=== PATIENT | female | born 1975 | race Asian ===

== ENCOUNTER 2019-07-13 17:03 | Outpatient (CLI) | payer OTHER ==
--- NOTE | 2019-07-14 15:15 | Ultrasound Report ---
Reason: TEST POSITIVE Procedure Date: 07/13/2019 Accession Number: [id number] / [id number] Procedure: US - OB First Trimester CPT Code: FULL RESULT: EXAM: FIRST TRIMESTER OBSTETRIC ULTRASOUND (Less than 11 weeks) EXAM DATE: 07/13/2019 05:55 PM. CLINICAL HISTORY: TEST POSITIVE. LMP: 05/21/2020. COMPARISONS: None. TECHNIQUE: Transabdominal and transvaginal ultrasound examination with static image documentation. CLINICAL DATES: EGA 7 weeks 4 days with JEREMÍAS 02/25/2020 based on LMP. ASSESSMENT: Gestational Sac: Single intrauterine. Mean gestational sac diameter: 38 mm = 9 weeks 1 day. Embryo: CRL (crown-rump length) 11 mm = 7 weeks 1 day. Cardiac activity: 150 beats per minute. Yolk sac: 4 mm. Amniotic fluid: Not accurately assessed at this gestational age. Early placenta: Not visible at this gestational age. Other: No perigestational fluid collection demonstrated. MATERNAL STRUCTURES: Uterus: Anteverted/ . Unremarkable. Cervix: Closed. Right Ovary/Adnexa: The ovary measures 3 x 1.8 x 2 cm, volume 5.6 cc. Unremarkable. Left Ovary/Adnexa: The ovary measures 4 x 2.5 x 2.8 cm, volume 14.9 cc. 2.3 x 1.9 x 1.7 cm corpus luteal cyst Free Fluid: None. Other: None. IMPRESSION: 1. Single viable intrauterine at EGA 7 weeks 1 day with JEREMÍAS 02/28/2020 based on crown-rump length, which is concordant with clinical dates. Of note the gestational sac is measuring 2 weeks ahead of the crown-rump length. RADIA
== END 2019-07-13 17:04 | disposition home or self-care (01) ==
LOC: DI 17:03
PROVIDERS: ATTEND Obstetrics & Gynecology
DX: Z32.01 Encounter for pregnancy test, result positive (principal)
CPT/HCPCS: 76801; 76817

== ENCOUNTER 2019-07-23 22:18 | Emergency (ER) | payer OTHER ==
[2019-07-23] MEDS ORDERED: ONDANSETRON 4 MG/2 ML VIAL IVP STA (23:12)
[2019-07-23] MEDS ORDERED: SODIUM CHLORIDE 0.9% 1,000 ML IV STA (23:12)
[2019-07-23 23:43] LABS: BASOPHILS % (AUTO) 0.2 %; EOSINOPHILS % (AUTO) 0.5 %; HGB - HEMOGLOBIN 12.8 g/dL (12.0-16.0); LYMPHOCYTES # (AUTO) 0.8 10^3/uL (1.5-3.5); LYMPHOCYTES % (AUTO) 12.2 %; MEAN CORPUSCULAR HGB CONC 34.1 g/dL (32.0-36.0); MEAN CORPUSCULAR VOLUME 87.8 fL (81.0-99.0); MEAN PLATELET VOLUME 11.6 fL (7.9-10.8); MONOCYTES # (AUTO) 0.3 10^3/uL (0.0-1.0); MONOCYTES % (AUTO) 4.2 %; NEUTROPHILS # (AUTO) 5.3 10^3/uL (1.5-6.6); NEUTROPHILS % (AUTO) 82.6 %; PLT - PLATELET COUNT 153 10^3/uL (130-450); RED BLOOD COUNT 4.27 10^6/uL (4.20-5.40); RED CELL DISTRIBUTION WIDTH 11.5 % (12.0-15.0); WHITE BLOOD COUNT 6.5 x10^3/uL (4.8-10.8)
[2019-07-23 23:57] LABS: ALBUMIN 3.7 g/dL (3.2-5.5); ALBUMIN/GLOBULIN RATIO 1.2 (1.0-2.2); BILIRUBIN,TOTAL 0.5 mg/dL (0.2-1.0); CALCIUM 9.1 mg/dL (8.5-10.3); CREATININE 0.5 mg/dL (0.4-1.0); TOTAL PROTEIN 6.9 g/dL (6.7-8.2)
[2019-07-24 00:36] LABS: BILIRUBIN,URINE NEGATIVE (NEGATIVE); GLUCOSE, URINE (UA) NEGATIVE (NEGATIVE); KETONES,URINE (UA) NEGATIVE (NEGATIVE); LEUKOCYTE ESTERASE, URINE NEGATIVE (NEGATIVE); NITRITE,URINE NEGATIVE (NEGATIVE); OCCULT BLOOD,URINE NEGATIVE (NEGATIVE); PROTEIN,URINE NEGATIVE (NEGATIVE); UROBILINOGEN,URINE 0.2 (NORMAL) E.U./dL (NORMAL)
[2019-07-24 01:00] LABS: CLARITY,URINE CLEAR (CLEAR)
[2019-07-24 01:26] VITALS: BP 102/69
--- NOTE | 2019-07-24 03:39 | ED Physician Documentation ---
PD HPI FEMALE - Stated complaint Stated Complaint: FEMALE /9 WKS - Chief complaint Chief Complaint: Abd Pain - History obtained from History obtained from: Patient - History of Present Illness Timing - onset: How many hours ago (2-3 hours DIRECTOR MEDIA) Timing - duration: Hours Timing - details: Abrupt onset, Still present (nearly resolved by the time of this evaluation), Waxing and waning Contributing factors: (approximately 9 weeks) OB-FISH AND WILDLIFE TECHNICIAN History: G (5), P (4) Similar symptoms before: Has not had sx before Recently seen: Not recently seen - Additional information Additional information: patient is approximately 9 weeks . 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 This was associated with nausea and vomiting, worse with standing. Symptoms have improved significantly prior to this evaluation. She had US on 07/13/19 that showed single viable IUP EGA 7 weeks 1 day Review of Systems Constitutional: denies: Fever, Chills, Sweats GI: reports: Nausea, Vomiting. denies: Abdominal Pain (right-sided pelvic pain and right flank pain, but no abdominal pain per se), Constipation, Diarrhea : reports: Now EGA (9 weeks). denies: Dysuria, Frequency, Hematuria, Vaginal bleeding PD PAST MEDICAL HISTORY - Past Medical History Past Medical History: No - Past Surgical History Past Surgical History: Yes - Allergies Allergies/Adverse Reactions: Allergies Allergy/AdvReac Type Severity Reaction Status Date / Time No Known Drug Allergies Allergy Verified 07/23/19 22:31 - Living Situation Living Situation: reports: With spouse/s.o. Living Arrangement: reports: At home - Social History Does the pt smoke?: No Smoking Status: Never smoker - POLST Patient has POLST: No PD ED PE NORMAL - Vitals Vital signs reviewed: Yes - General General: Alert and oriented X 3, No acute distress, Well developed/nourished - HEENT HEENT: Moist mucous membranes - Neck Neck: Supple, no meningeal sign - Cardiac Cardiac: RRR, No murmur - Respiratory Respiratory: No respiratory distress, Clear bilaterally - Abdomen Abdomen: Soft, Non tender, Non distended - Back Back: No CVA TTP - Derm Derm: Normal color, Warm and dry Results - Vitals Vitals: Vital Signs - 24 hr 07/23/19 07/23/19 07/24/19 22:29 22:31 00:38 Temperature 36.8 C 36.7 C Heart Rate 78 78 71 Respiratory 17 17 16 Rate Blood Pressure 127/85 H 127/85 H 105/69 O2 Saturation 100 100 100 07/24/19 01:25 Temperature 36.8 C Heart Rate 74 Respiratory 16 Rate Blood Pressure 102/69 O2 Saturation 99 Oxygen O2 Source Room air - Labs Labs: Laboratory Tests 07/23/19 07/23/19 07/24/19 23:35 23:35 00:27 WBC 6.5 RBC 4.27 Hgb 12.8 Hct 37.5 MCV 87.8 MCH 30.0 MCHC 34.1 RDW 11.5 L Plt Count 153 MPV 11.6 H Neut # (Auto) 5.3 Lymph # (Auto) 0.8 L [place] # (Auto) 0.3 Eos # (Auto) 0.0 Baso # (Auto) 0.0 Absolute Nucleated RBC 0.00 Nucleated RBC % 0.0 Sodium 136 Potassium 3.7 Chloride 101 Carbon Dioxide 25 Anion Gap 10.0 BUN 12 Creatinine 0.5 Estimated GFR (MDRD) 135 Glucose 109 H Calcium 9.1 Total Bilirubin 0.5 AST 15 ALT 14 Alkaline Phosphatase 35 L Total Protein 6.9 Albumin 3.7 Globulin 3.2 Albumin/Globulin Ratio 1.2 Lipase 32 Urine Color YELLOW Urine Clarity CLEAR Urine pH 7.0 Ur Specific Ferdinand 1.010 Urine Protein NEGATIVE Urine Glucose (UA) NEGATIVE Urine Ketones NEGATIVE Urine Occult Blood NEGATIVE Urine Nitrite NEGATIVE Urine Bilirubin NEGATIVE Urine Urobilinogen 0.2 (NORMAL) Ur Leukocyte Esterase NEGATIVE Ur Microscopic Review NOT INDICATED Urine Culture Comments NOT INDICATED PD MEDICAL DECISION MAKING - ED course Complexity details: reviewed old records (reviewed US report from 07/13/19 study), reviewed results, re-evaluated patient, considered differential, d/w patient, d/w family ED course: IV started and fluids and zofran given via IV due to her N/V (reports several episodes of N/V DIRECTOR MEDIA and she feels dehydrated on presentation). Reassuring test results and she reports feeling significantly better after the IV fluids and zofran Departure - Departure Disposition: 01 Home, Self Care Clinical Impression: Abdominal pain Qualifiers: Abdominal location: left lower quadrant Qualified Code(s): R10.32 - Left lower quadrant pain Qualifiers: Weeks of gestation: 9 weeks Qualified Code(s): Z3A.09 - 9 weeks gestation of Condition: Good Instructions: ED Abdominal Pain Rule Out Ectopic, ED Pelvic Pain UKO Discharge Date/Time: 07/24/19 01:30
== END 2019-07-24 01:30 | disposition home or self-care (01) ==
LOC: ED 22:18
DX: O99.89 Other specified diseases and conditions complicating pregnancy, childbirth and the puerperium (principal); R10.32 Left lower quadrant pain; Z3A.09 9 weeks gestation of pregnancy
CPT/HCPCS: 36415; 80053; 81001; 81003; 83690; 85025; 87086; 96361; 96374; 99284

== ENCOUNTER 2019-07-29 08:00 | Outpatient (CLI) | payer OTHER ==
[2019-07-29 14:44] LABS: MUDS CUTOFF CONCENTRATIONS CUTOFF CONC BELOW:
[2019-07-29 15:03] LABS: BILIRUBIN,URINE NEGATIVE (NEGATIVE); GLUCOSE, URINE (UA) NEGATIVE (NEGATIVE); KETONES,URINE (UA) NEGATIVE (NEGATIVE); LEUKOCYTE ESTERASE, URINE NEGATIVE (NEGATIVE); NITRITE,URINE NEGATIVE (NEGATIVE); OCCULT BLOOD,URINE NEGATIVE (NEGATIVE); PROTEIN,URINE NEGATIVE (NEGATIVE); UROBILINOGEN,URINE 0.2 (NORMAL) E.U./dL (NORMAL)
[2019-07-29 15:24] LABS: BACTERIA,URINE Few /HPF (None Seen); CLARITY,URINE CLEAR (CLEAR); CRYSTALS,URINE 3-5 Calcium Oxalate /LPF; RBC,URINE None Seen /HPF (0-5); SQUAMOUS EPITHELIAL CELL,UR MOD Squamous (<= Few)
[2019-07-29 15:25] LABS: AMPHETAMINE SCREEN,URINE NEGATIVE (NEGATIVE); BENZODIAZEPINES SCREEN, URINE NEGATIVE (NEGATIVE); COCAINE SCREEN URINE NEGATIVE (NEGATIVE); METHADONE SCREEN, URINE NEGATIVE (NEGATIVE); METHAMPHETAMINES SCREEN, URINE NEGATIVE (NEGATIVE); OPIATE SCREEN, URINE NEGATIVE (NEGATIVE); OXYCODONE SCREEN, URINE NEGATIVE (NEGATIVE); PROPOXYPHENE SCREEN, URINE NEGATIVE (NEGATIVE); TRICYCLIC ANTIDEPRESSANT,URINE NEGATIVE (NEGATIVE)
[2019-07-29 21:49] LABS: TRICHOMONAS VAGINALIS DNA NEGATIVE (NEGATIVE)
== END 2019-07-29 23:59 | disposition home or self-care (01) ==
LOC: LAB.R 08:00
PROVIDERS: ATTEND Nurse Practitioner Obstetrics & Gynecology
DX: Z36.89 Encounter for other specified antenatal screening (principal)
CPT/HCPCS: 80306; 81001; 87086; 87491; 87591; 87661

== ENCOUNTER 2019-07-29 10:02 | Outpatient (CLI) | payer OTHER ==
[2019-07-29 10:23] LABS: BASOPHILS % (AUTO) 0.2 %; EOSINOPHILS % (AUTO) 0.6 %; HGB - HEMOGLOBIN 13.2 g/dL (12.0-16.0); LYMPHOCYTES # (AUTO) 0.9 10^3/uL (1.5-3.5); LYMPHOCYTES % (AUTO) 17.2 %; MEAN CORPUSCULAR HEMOGLOBIN 31.5 pg (27.0-31.0); MEAN CORPUSCULAR HGB CONC 34.9 g/dL (32.0-36.0); MEAN CORPUSCULAR VOLUME 90.2 fL (81.0-99.0); MEAN PLATELET VOLUME 11.9 fL (7.9-10.8); MONOCYTES # (AUTO) 0.3 10^3/uL (0.0-1.0); MONOCYTES % (AUTO) 5.1 %; NEUTROPHILS # (AUTO) 3.9 10^3/uL (1.5-6.6); NEUTROPHILS % (AUTO) 76.3 %; PLT - PLATELET COUNT 149 10^3/uL (130-450); RED BLOOD COUNT 4.19 10^6/uL (4.20-5.40); RED CELL DISTRIBUTION WIDTH 11.3 % (12.0-15.0); WHITE BLOOD COUNT 5.1 x10^3/uL (4.8-10.8)
[2019-07-29 10:38] LABS: HB2 TOTAL 13.1 g/dL; HEMOGLOBIN A1C 0.48 g/dL; HEMOGLOBIN A1C % 5.5 % (4.6-6.2)
[2019-07-30 11:26] LABS: HEPATITIS B SURFACE ANTIGEN NON-REACTIVE (NON-REACTIVE)
[2019-07-30 11:27] LABS: HEPATITIS C ANTIBODY NON-REACTIVE (NON-REACTIVE)
[2019-07-30 11:42] LABS: HIV AG/AB 4TH GEN NON-REACTIVE (NON-REACTIVE)
== END 2019-07-29 10:03 | disposition home or self-care (01) ==
LOC: LAB 10:02
PROVIDERS: ATTEND Nurse Practitioner Obstetrics & Gynecology
DX: Z36.89 Encounter for other specified antenatal screening (principal)
CPT/HCPCS: 36415; 81599; 83036; 85025; 86592; 86762; 86803; 86850; 86900; 86901; 87340; 87389

== ENCOUNTER 2019-09-24 13:43 | Outpatient (CLI) | payer MEDICAID | END 2019-09-24 13:44 | disposition home or self-care (01) | LOC: LAB 13:43 | PROVIDERS: ATTEND Obstetrics & Gynecology | DX: O09.529 Supervision of elderly multigravida, unspecified trimester (principal) | CPT/HCPCS: 36415; 81599 ==

== ENCOUNTER 2019-11-09 14:24 | Outpatient (CLI) | payer MEDICAID ==
--- NOTE | 2019-11-11 09:28 | Ultrasound Report ---
Reason: SUPERVISION OF ELDERLY MULTIGRAVIDA Procedure Date: 11/09/2019 Accession Number: [id number] / [id number] Procedure: US - OB F/U or Repeat CPT Code: Final Report FULL RESULT: EXAM: FOLLOW-UP OBSTETRICAL ULTRASOUND EXAM DATE: 11/09/2019 02:41 PM. CLINICAL HISTORY: Follow-up incomplete anatomic survey. COMPARISON: OB DETAILED EVAL 10/07/2019 9:14 AM. TECHNIQUE: Real-time sonographic evaluation of the fetus performed by the can technician. Multiple business services representative static images were saved for review. DATING: Established EGA 24 weeks 4 days with JEREMÍAS 02/25/2020 based on last menstrual period. EGA 24 weeks 1 day with JEREMÍAS 02/28/2020 based on first ultrasound of 07/13/2019. GENERAL EVALUATION Payan . Cardiac activity: 142 bpm. movement: Present. Presentation: Breech. Placenta: Fundal wrap position. Amniotic fluid: Normal. MARIAN 16.7 cm. MVP 4.2 cm. BIOMETRY Not performed today. ANATOMY Three-vessel cord present. Real-time imaging by the can technician demonstrates unremarkable hands. MATERNAL STRUCTURES Cervix 4.2 cm. IMPRESSION: 1. Payan intrauterine with gestational age 24 weeks 4 days based on LMP. 2. Three-vessel cord and normal-appearing hands demonstrated. RADIA
== END 2019-11-09 14:25 | disposition home or self-care (01) ==
LOC: DI 14:24
PROVIDERS: ATTEND Obstetrics & Gynecology
DX: O09.529 Supervision of elderly multigravida, unspecified trimester (principal); Z3A.24 24 weeks gestation of pregnancy
CPT/HCPCS: 76816

== ENCOUNTER 2020-01-10 15:57 | Outpatient (CLI) | payer MEDICAID ==
--- NOTE | 2020-01-10 16:28 | PROCEDURE REPORT ---
- HPI Diagnosis/Indication for NST: Other (Advanced maternal age 44yo) - Results and Plan Findings/Impression: Fluid eval done as US department was unable to schedule the pt within the next few days. Vertex, grade 0 placenta, MVP 3.9. US machine's printer not working. Category 1 NST. [place] q2-3min, not felt by pt, frequent UCs are her "normal", pt is a P4. Continue surveillance 2x/w for advanced maternal age 44yo.
[2020-01-10 17:30] VITALS: BP 108/68
== END 2020-01-10 17:00 | disposition home or self-care (01) ==
LOC: WFO 15:57 → FBP 15:59 → WFO 17:00
PROVIDERS: ATTEND Obstetrics & Gynecology
DX: O09.523 Supervision of elderly multigravida, third trimester (principal); Z3A.33 33 weeks gestation of pregnancy
CPT/HCPCS: 59025

== ENCOUNTER 2020-01-13 10:56 | Outpatient (CLI) | payer MEDICAID ==
[2020-01-13 11:15] VITALS: BP 103/67
--- NOTE | 2020-01-23 22:52 | PROCEDURE REPORT ---
- HPI Diagnosis/Indication for NST: Other (AMA) Current EDU 02/25/20 Gestation 33 Weeks and 6 Days 7 Para 4 Vital Signs Temperature 98.8 F 01/13/20 11:14 Heart Rate 87 01/13/20 11:14 Respiratory Rate 16 01/13/20 11:14 Blood Pressure 103/67 01/13/20 11:14 O2 Saturation 100 01/13/20 11:14 Temperature 98.8 F 01/13/20 11:14 Heart Rate 87 01/13/20 11:14 Respiratory Rate 16 01/13/20 11:14 Blood Pressure 103/67 01/13/20 11:14 O2 Saturation 100 01/13/20 11:14 - NST Procedure NST Procedure Start Date 01/13/20 Start Time 11:08 Stop Time 11:48 Vibroacoustic Stimulation Used No Patient States Movement Yes EFM 135 mod wyatt 15x15 accels no decels TOCO: quiet Cat I tracing - Results and Plan Findings/Impression: 44 yo at 33w6d ega here for NST for AMA and likely GDM Cat I tracing Cont with twice weekly NST and weekly MARIAN Encouraged to complete 3h OGTT
== END 2020-01-13 11:55 | disposition home or self-care (01) ==
LOC: WFO 10:56 → FBP 11:02 → WFO 11:55
PROVIDERS: ATTEND Obstetrics & Gynecology
DX: O09.523 Supervision of elderly multigravida, third trimester (principal); Z3A.33 33 weeks gestation of pregnancy
CPT/HCPCS: 59025

== ENCOUNTER 2020-01-15 08:27 | Outpatient (CLI) | payer MEDICAID ==
--- NOTE | 2020-01-17 04:10 | Ultrasound Report ---
Reason: MARIAN. sUPERVISION OF NORMAL MULTIGRAVIDA 3RD TRI Procedure Date: 01/15/2020 Accession Number: [id number] / [id number] Procedure: US - OB Limited CPT Code: Final Report FULL RESULT: EXAM: LIMITED OBSTETRICAL ULTRASOUND EXAM DATE: 01/15/2020 09:22 AM. CLINICAL HISTORY: MARIAN. sUPERVISION OF NORMAL MULTIGRAVIDA 3RD TRI. COMPARISON: OB F/U OR REPEAT 11/09/2019 2:41 PM. TECHNIQUE: Real-time sonographic evaluation of the fetus performed by the director commercial sales. Multiple medical device sales representative static images were saved for review. Additional transvaginal imaging to more accurately evaluate cervical length/placental position/etc. DATING: Established EGA 34 weeks 1 day with JEREMÍAS 02/25/2020. GENERAL EVALUATION Payan . Cardiac activity: 132 bpm. Presentation: Cephalic. Placenta: Fundal position. Amniotic fluid: Normal. MARIAN 8.0 cm. MVP 3.0 cm. MATERNAL STRUCTURES Cervix: Long and closed, measuring 6.1 cm on transabdominal images. IMPRESSION: 1. Payan live intrauterine with gestational age 34 weeks 1 day based on established JEREMÍAS. 2. MARIAN 8.0 cm. RADIA
== END 2020-01-15 08:28 | disposition home or self-care (01) ==
LOC: DI 08:27
PROVIDERS: ATTEND Obstetrics & Gynecology
DX: O09.523 Supervision of elderly multigravida, third trimester (principal); Z3A.34 34 weeks gestation of pregnancy
CPT/HCPCS: 76815

== ENCOUNTER 2020-01-17 15:55 | Outpatient (CLI) | payer MEDICAID ==
[2020-01-17 16:13] VITALS: BP 117/70
--- NOTE | 2020-02-05 12:27 | PROVIDER PROGRESS NOTE ---
- HPI Chief Complaint: Labor Current : Current EDU 02/25/20 Gestation 34 Weeks and 3 Days 7 Para 4 Vital Signs Temperature 36.9 C 01/17/20 16:07 Heart Rate 108 H 01/17/20 16:07 Respiratory Rate 17 01/17/20 16:07 Blood Pressure 117/70 01/17/20 16:07 O2 Saturation 98 01/17/20 16:07 Temperature 36.9 C 01/17/20 16:07 Heart Rate 108 H 01/17/20 16:07 Respiratory Rate 17 01/17/20 16:07 Blood Pressure 117/70 01/17/20 16:07 O2 Saturation 98 01/17/20 16:07 - Procedures Diagnosis/Indication for NST: labor NST Procedure: NST Procedure Start Date 01/17/20 Start Time 16:02 Stop Time 16:41 Vibroacoustic Stimulation Used No Patient States Movement Yes Service Date of procedure: 01/17/20 Procedure Details: Cx check Findings: No changes - Plan Plan: discharge to home return if contraction are worse.
== END 2020-01-17 16:45 | disposition home or self-care (01) ==
LOC: WFO 15:55 → FBP 15:58 → WFO 16:45
PROVIDERS: ATTEND Obstetrics & Gynecology
DX: O60.03 Preterm labor without delivery, third trimester (principal); Z3A.34 34 weeks gestation of pregnancy
CPT/HCPCS: 59025; 82731

== ENCOUNTER 2020-01-20 09:55 | Outpatient (CLI) | payer MEDICAID ==
[2020-01-20 10:45] VITALS: BP 102/67
--- NOTE | 2020-01-21 05:38 | Labor Flowsheet ---
Labor Flowsheet Datetime Report Generated by CPN: 01/21/2020 05:38 Datetime: 01/20/2020 10:45 VITAL SIGNS NBP Sys/Yen/Mean (mmHg): 102 : 67 : 74 Pulse: 89 Datetime: 01/17/2020 16:23 SpO2 (%): 98
--- NOTE | 2020-01-21 14:44 | Ultrasound Report ---
Reason: WEEKLY MARIAN, SUPERVISION OF ELDERLY MULTIGRAVIDA Procedure Date: 01/20/2020 Accession Number: [id number] / [id number] Procedure: US - OB Limited CPT Code: Final Report FULL RESULT: EXAM: LIMITED OBSTETRICAL ULTRASOUND EXAM DATE: 01/20/2020 10:33 AM. CLINICAL HISTORY: WEEKLY MARIAN, SUPERVISION OF ELDERLY MULTIGRAVIDA. COMPARISON: OB LIMITED 01/15/2020 9:22 AM. TECHNIQUE: Real-time sonographic evaluation of the fetus performed by the aerial photogrammetrist. Multiple denial management representative static images were saved for review. DATING: Established EGA 34 weeks 6 days with JEREMÍAS 02/25/2020. GENERAL EVALUATION Payan . Cardiac activity: 143 bpm. movement: Present. Presentation: Cephalic. Placenta: Fundal wrap position. Amniotic fluid: Normal. MARIAN 11.7 cm. MVP 3.4 cm. ANATOMY Not assessed today. MATERNAL STRUCTURES Cervix 4 cm. IMPRESSION: 1. Payan intrauterine with gestational age 34 weeks 6 days based on established JEREMÍAS. 2. MARIAN normal 11.7 cm. RADIA
--- NOTE | 2020-01-23 23:06 | PROCEDURE REPORT ---
- HPI Diagnosis/Indication for NST: Other (AMA and presumed GDM) Current EDU 02/25/20 Gestation 34 Weeks and 6 Days 10 Para 4 Vital Signs Temperature 97.9 F 01/20/20 10:42 Heart Rate 86 01/20/20 10:42 Respiratory Rate 16 01/20/20 10:42 Blood Pressure 102/67 01/20/20 10:42 Temperature 97.9 F 01/20/20 10:42 Heart Rate 86 01/20/20 10:42 Respiratory Rate 16 01/20/20 10:42 Blood Pressure 102/67 01/20/20 10:42 O2 Saturation - NST Procedure NST Procedure Start Date 01/20/20 Start Time 10:42 Stop Time 11:50 Vibroacoustic Stimulation Used No Patient States Movement Yes EFM 135 mod wyatt 15x15 accels no decels TOCO; intermittent - Results and Plan Findings/Impression: 44 yo at 34+6 wga here for NST for AMA and likely GDM Cat I tracing Cont with twice weekly NST and weekly MARIAN Plan for IOl at 39 wga Encouraged to complete 3 H GTT
== END 2020-01-20 12:00 | disposition home or self-care (01) ==
LOC: DI 09:55 → FBP 10:31 → DI 12:00
PROVIDERS: ATTEND Obstetrics & Gynecology
DX: O09.523 Supervision of elderly multigravida, third trimester (principal); Z3A.34 34 weeks gestation of pregnancy
CPT/HCPCS: 59025; 76815

== ENCOUNTER 2020-01-24 17:04 | Outpatient (CLI) | payer MEDICAID ==
[2020-01-24 17:19] VITALS: BP 106/71
--- NOTE | 2020-02-09 14:34 | PROCEDURE REPORT ---
- HPI Diagnosis/Indication for NST: Other (AMA) Current EDU 02/25/20 Gestation 35 Weeks and 3 Days 10 Para 4 Vital Signs Temperature 98.2 F 01/24/20 17:17 Heart Rate 110 H 01/24/20 17:17 Respiratory Rate 18 01/24/20 17:17 Blood Pressure 106/71 01/24/20 17:17 O2 Saturation 100 01/24/20 17:17 Temperature 98.2 F 01/24/20 17:17 Heart Rate 110 H 01/24/20 17:17 Respiratory Rate 18 01/24/20 17:17 Blood Pressure 106/71 01/24/20 17:17 O2 Saturation 100 01/24/20 17:17 - NST Procedure NST Procedure Start Date 01/24/20 Start Time 17:15 Stop Time 17:35 Vibroacoustic Stimulation Used Yes Patient States Movement Yes EFM 140mod wyatt 15x15 accels no decel TOCO: irritable - Results and Plan Findings/Impression: 44 to with GDM and AMA here for NST Cat I tracing FU with twice weekly NST and weekly MARIAN
== END 2020-01-24 17:40 | disposition home or self-care (01) ==
LOC: WFO 17:04 → FBP 17:09 → WFO 17:40
PROVIDERS: ATTEND Obstetrics & Gynecology
DX: O24.419 Gestational diabetes mellitus in pregnancy, unspecified control (principal); O09.523 Supervision of elderly multigravida, third trimester; Z3A.35 35 weeks gestation of pregnancy
CPT/HCPCS: 59025

== ENCOUNTER 2020-01-26 19:23 | Outpatient (CLI) | payer MEDICAID ==
--- NOTE | 2020-01-27 03:40 | Ultrasound Report ---
Reason: AMA, SUPERVISION OF 3RD TRIMESTER Procedure Date: 01/26/2020 Accession Number: [id number] / [id number] Procedure: US - OB F/U or Repeat CPT Code: Final Report FULL RESULT: EXAM: FOLLOW-UP OBSTETRICAL ULTRASOUND EXAM DATE: 01/26/2020 07:44 PM. CLINICAL HISTORY: AMA, SUPERVISION OF 3RD TRIMESTER. COMPARISON: OB F/U OR REPEAT 11/09/2019 2:41 PM. TECHNIQUE: Real-time sonographic evaluation of the fetus performed by the production underwriter. Multiple patient accounting representative static images were saved for review. DATING: Established EGA 35 weeks 5 days with JEREMÍAS 02/25/2020 based on LMP. EGA 35 weeks 2 days with JEREMÍAS 02/28/2020 based on initial sonogram. EGA 35 weeks 2 days with JEREMÍAS 02/28/2020 based on the current ultrasound. GENERAL EVALUATION Payan . Cardiac activity: 140 bpm. movement: Visualized. Presentation: Cephalic. Placenta: Fundal position. Amniotic fluid: Normal. MARIAN 12.7 cm. MVP 4.5 cm. BIOMETRY Bi-Parietal Diameter (BPD): 8.6 cm, 34 weeks 4 days Head Circumference (HC): 31.6 cm, 35 weeks 4 days Abdominal Circumference (AC): 32.6 cm, 36 weeks 4 days Femur Length (FL): 6.7 cm, 34 weeks 4 days Estimated Weight: 2747 g, 49th percentile for 35 weeks 5 days. IMPRESSION: 1. Payan live intrauterine with gestational age 35 weeks 5 days based on LMP. 2. Estimated weight is within expected limits for assigned dating. 3. Normal interval growth compared to initial sonogram. PEGGY
== END 2020-01-26 19:24 | disposition home or self-care (01) ==
LOC: DI 19:23
PROVIDERS: ATTEND Obstetrics & Gynecology
DX: O09.523 Supervision of elderly multigravida, third trimester (principal); Z3A.35 35 weeks gestation of pregnancy
CPT/HCPCS: 76816

== ENCOUNTER 2020-01-27 07:16 | Outpatient (CLI) | payer MEDICAID | END 2020-01-27 07:17 | disposition home or self-care (01) | LOC: LAB 07:16 | PROVIDERS: ATTEND Obstetrics & Gynecology | DX: O99.810 Abnormal glucose complicating pregnancy (principal); Z3A.00 Weeks of gestation of pregnancy not specified | CPT/HCPCS: 36415; 82951; 82952 ==

== ENCOUNTER 2020-01-27 10:38 | Outpatient (CLI) | payer MEDICAID ==
[2020-01-27 10:56] VITALS: BP 103/73
--- NOTE | 2020-01-27 18:42 | Labor Flowsheet ---
Labor Flowsheet Datetime Report Generated by CPN: 01/27/2020 18:42 Datetime: 01/27/2020 17:32 VITAL SIGNS NBP Sys/Yen/Mean (mmHg): 144 : 71 : 89 Pulse: 93 Datetime: 01/27/2020 10:55 SpO2 (%): 100 Datetime: 01/24/2020 17:48 Temperature (C): 37.5 (Annotations: Temp 37.5 axillary. 97.9F orally, pt just finished a popsicle. Will recheck)
== END 2020-01-27 11:25 | disposition home or self-care (01) ==
LOC: DI 10:38 → FBP 10:43 → DI 11:25
PROVIDERS: ATTEND Obstetrics & Gynecology
DX: O09.523 Supervision of elderly multigravida, third trimester (principal); O99.810 Abnormal glucose complicating pregnancy; Z3A.35 35 weeks gestation of pregnancy
CPT/HCPCS: 36415; 59025; 82951; 82952

== ENCOUNTER 2020-01-29 08:00 | Outpatient (CLI) | payer MEDICAID ==
[2020-01-29 21:11] LABS: TRICHOMONAS VAGINALIS DNA NEGATIVE (NEGATIVE)
== END 2020-01-29 23:59 | disposition home or self-care (01) ==
LOC: LAB.R 08:00
PROVIDERS: ATTEND Nurse Practitioner Obstetrics & Gynecology
DX: Z36.85 Encounter for antenatal screening for Streptococcus B (principal)
CPT/HCPCS: 87491; 87591; 87661; 87797

== ENCOUNTER 2020-01-31 15:55 | Outpatient (CLI) | payer MEDICAID ==
[2020-01-31 16:08] VITALS: BP 100/74
--- NOTE | 2020-01-31 16:52 | PROCEDURE REPORT ---
- HPI Diagnosis/Indication for NST: Gestational Diabetes Current EDU 02/25/20 Gestation 36 Weeks and 3 Days 8 Para 4 Vital Signs Temperature 36.2 C L 01/31/20 16:06 Heart Rate 103 H 01/31/20 16:06 Respiratory Rate 18 01/31/20 16:06 Blood Pressure 100/74 01/31/20 16:06 O2 Saturation 100 01/31/20 16:06 Temperature 36.2 C L 01/31/20 16:06 Heart Rate 103 H 01/31/20 16:06 Respiratory Rate 18 01/31/20 16:06 Blood Pressure 100/74 01/31/20 16:06 O2 Saturation 100 01/31/20 16:06 - NST Procedure NST Procedure Start Date 01/31/20 Start Time 16:00 Stop Time 16:34 Vibroacoustic Stimulation Used No Patient States Movement Yes - Results and Plan Findings/Impression: reactive NST Plan: twice weekly NST
== END 2020-01-31 16:45 | disposition home or self-care (01) ==
LOC: WFO 15:55 → FBP 15:56 → WFO 16:45
PROVIDERS: ATTEND Obstetrics & Gynecology
DX: O24.419 Gestational diabetes mellitus in pregnancy, unspecified control (principal); Z3A.36 36 weeks gestation of pregnancy
CPT/HCPCS: 59025

== ENCOUNTER 2020-02-03 09:44 | Outpatient (CLI) | payer MEDICAID ==
--- NOTE | 2020-02-03 12:01 | Ultrasound Report ---
Reason: AMA, SUPERVISION OF 3RD TRIMESTER Procedure Date: 02/03/2020 Accession Number: [id number] / [id number] Procedure: US - OB Limited CPT Code: Final Report FULL RESULT: EXAM: LIMITED OBSTETRICAL ULTRASOUND EXAM DATE: 02/03/2020 10:51 AM. CLINICAL HISTORY: Advanced maternal age. Supervision of in the third trimester. COMPARISON: OB LIMITED 01/20/2020 10:06 AM. TECHNIQUE: Real-time sonographic evaluation of the fetus performed by the milk route supervisor. Multiple customer retention representative static images were saved for review. DATING: Established EGA 36 weeks 6 days with JEREMÍAS 02/25/2020. GENERAL EVALUATION Payan . Cardiac activity: 137 bpm. movement: Visualized. Presentation: Cephalic. Placenta: Fundal position. Amniotic fluid: Normal. MARIAN 9.1 cm. MVP 4.2 cm. IMPRESSION: 1. Payan live intrauterine with gestational age 36 weeks 6 days. Based on established JEREMÍAS. 2. Normal amniotic fluid. RADIA
== END 2020-02-03 09:45 | disposition home or self-care (01) ==
LOC: DI 09:44
PROVIDERS: ATTEND Obstetrics & Gynecology
DX: O09.523 Supervision of elderly multigravida, third trimester (principal); Z3A.36 36 weeks gestation of pregnancy
CPT/HCPCS: 76815

== ENCOUNTER 2020-02-03 10:53 | Outpatient (CLI) | payer MEDICAID ==
[2020-02-03 11:14] VITALS: BP 114/73
--- NOTE | 2020-02-09 15:31 | PROCEDURE REPORT ---
- HPI Diagnosis/Indication for NST: Other (presumed GDM and AMA) Current EDU 02/25/20 Gestation 36 Weeks and 6 Days 10 Para 4 Vital Signs Temperature 98.8 F 02/03/20 11:13 Heart Rate 89 02/03/20 11:13 Respiratory Rate 18 02/03/20 11:13 Blood Pressure 114/73 02/03/20 11:13 O2 Saturation 100 02/03/20 11:13 Temperature 98.8 F 02/03/20 11:13 Heart Rate 89 02/03/20 11:13 Respiratory Rate 18 02/03/20 11:13 Blood Pressure 114/73 02/03/20 11:13 O2 Saturation 100 02/03/20 11:13 - NST Procedure NST Procedure Start Date 02/03/20 Start Time 11:00 Stop Time 11:25 Vibroacoustic Stimulation Used No Patient States Movement Yes EFM 140 mod wyatt 15x15 accels no decels TOCO: rare - Results and Plan Findings/Impression: 44 yo at 36+6 wga with complicated by presumed GDM and AMA Cat I tracing Cont with twice weekly NST and weekly MARIAN Q4 week growth us IOL at 39 wga
== END 2020-02-03 11:30 | disposition home or self-care (01) ==
LOC: WFO 10:53 → FBP 10:57 → WFO 11:30
PROVIDERS: ATTEND Obstetrics & Gynecology
DX: O09.523 Supervision of elderly multigravida, third trimester (principal); Z3A.36 36 weeks gestation of pregnancy
CPT/HCPCS: 59025; 76815

== ENCOUNTER 2020-02-05 08:00 | Outpatient (CLI) | payer MEDICAID ==
[2020-02-05 17:04] LABS: BILIRUBIN,URINE NEGATIVE (NEGATIVE); GLUCOSE, URINE (UA) NEGATIVE (NEGATIVE); KETONES,URINE (UA) NEGATIVE (NEGATIVE); LEUKOCYTE ESTERASE, URINE TRACE (NEGATIVE); NITRITE,URINE NEGATIVE (NEGATIVE); OCCULT BLOOD,URINE NEGATIVE (NEGATIVE); PROTEIN,URINE NEGATIVE (NEGATIVE); UROBILINOGEN,URINE 0.2 (NORMAL) E.U./dL (NORMAL)
[2020-02-05 17:18] LABS: CLARITY,URINE CLEAR (CLEAR)
[2020-02-05 17:19] LABS: BACTERIA,URINE None Seen /HPF (None Seen); RBC,URINE None Seen /HPF (0-5); SQUAMOUS EPITHELIAL CELL,UR MOD Squamous (<= Few)
== END 2020-02-05 23:59 | disposition home or self-care (01) ==
LOC: LAB.R 08:00
PROVIDERS: ATTEND Advanced Practice Midwife
DX: Z34.83 Encounter for supervision of other normal pregnancy, third trimester (principal)
CPT/HCPCS: 81001; 81003; 87086

== ENCOUNTER 2020-02-07 15:52 | Outpatient (CLI) | payer MEDICAID ==
[2020-02-07 16:09] VITALS: BP 121/77
--- NOTE | 2020-02-09 22:16 | PROCEDURE REPORT ---
- HPI Diagnosis/Indication for NST: Other (AMA) Current EDU 02/25/20 Gestation 37 Weeks and 3 Days 10 Para 4 Vital Signs Temperature 98.1 F 02/07/20 16:07 Heart Rate 84 02/07/20 16:07 Respiratory Rate 17 02/07/20 16:07 Blood Pressure 121/77 02/07/20 16:07 O2 Saturation 100 02/07/20 16:07 Temperature 98.1 F 02/07/20 16:07 Heart Rate 84 02/07/20 16:07 Respiratory Rate 17 02/07/20 16:07 Blood Pressure 121/77 02/07/20 16:07 O2 Saturation 100 02/07/20 16:07 - NST Procedure NST Procedure Start Date 02/07/20 Start Time 15:57 Stop Time 16:34 Vibroacoustic Stimulation Used No Patient States Movement Yes - Results and Plan Findings/Impression: NST meets criteria; category 1 Plan: Reassuring testing. F/U as scheduled.
== END 2020-02-07 16:40 | disposition home or self-care (01) ==
LOC: WFO 15:52 → FBP 15:54 → WFO 16:40
PROVIDERS: ATTEND Obstetrics & Gynecology
DX: O09.523 Supervision of elderly multigravida, third trimester (principal); Z3A.37 37 weeks gestation of pregnancy
CPT/HCPCS: 59025

== ENCOUNTER 2020-02-10 09:55 | Outpatient (CLI) | payer MEDICAID ==
--- NOTE | 2020-02-10 12:33 | Ultrasound Report ---
Reason: SUPERVISION OF ELDERLY MULTIGRAVIDA, UNSPEC TRIMESTER Procedure Date: 02/10/2020 Accession Number: [id number] / [id number] Procedure: US - OB Limited CPT Code: Final Report FULL RESULT: EXAM: LIMITED OBSTETRICAL ULTRASOUND EXAM DATE: 02/10/2020 10:25 AM. CLINICAL HISTORY: SUPERVISION OF ELDERLY MULTIGRAVIDA, UNSPEC TRIMESTER. COMPARISON: OB LIMITED 02/03/2020 10:27 AM. TECHNIQUE: Real-time sonographic evaluation of the fetus performed by the information systems supervisor. Multiple counter sales representative static images were saved for review. DATING: Established EGA 37 weeks 6 days with JEREMÍAS 02/25/2020. GENERAL EVALUATION Payan . Cardiac activity: 150 bpm. movement: Present. Presentation: Cephalic. Placenta: Fundal position. Amniotic fluid: Low Normal. MARIAN 6.3 cm. MVP 2.6 cm. ANATOMY Not assessed today. MATERNAL STRUCTURES Not assessed today IMPRESSION: 1. Payan intrauterine with gestational age 37 weeks 6 days based on established JEREMÍAS. 2. MARIAN 6.3 cm, MVP 2.6 cm. RADIA
== END 2020-02-10 09:56 | disposition home or self-care (01) ==
LOC: DI 09:55
PROVIDERS: ATTEND Obstetrics & Gynecology
DX: O09.523 Supervision of elderly multigravida, third trimester (principal); Z3A.37 37 weeks gestation of pregnancy
CPT/HCPCS: 76815

== ENCOUNTER 2020-02-10 10:28 | Outpatient (CLI) | payer MEDICAID ==
[2020-02-10 11:09] VITALS: BP 103/73
--- NOTE | 2020-02-10 12:14 | PROCEDURE REPORT ---
- HPI Diagnosis/Indication for NST: Other (AMA) Current EDU 02/25/20 Gestation 37 Weeks and 6 Days 10 Para 5 Vital Signs Temperature 98.4 F 02/10/20 11:08 Heart Rate 100 02/10/20 11:08 Respiratory Rate 16 02/10/20 11:08 Blood Pressure 103/73 02/10/20 11:08 Temperature 98.4 F 02/10/20 11:08 Heart Rate 100 02/10/20 11:08 Respiratory Rate 16 02/10/20 11:08 Blood Pressure 103/73 02/10/20 11:08 O2 Saturation - NST Procedure NST Procedure Start Date 02/10/20 Start Time 10:35 Stop Time 11:05 Vibroacoustic Stimulation Used No Patient States Movement Yes - Results and Plan Findings/Impression: 130'-140's baseline. Accels that meet criteria, moderate variability. No decels. Category 1 Rare, mild contraction Plan: Plan DC home. F/U as scheduled
== END 2020-02-10 11:10 | disposition home or self-care (01) ==
LOC: WFO 10:28 → FBP 10:29 → WFO 11:10
PROVIDERS: ATTEND Obstetrics & Gynecology
DX: O09.523 Supervision of elderly multigravida, third trimester (principal); Z3A.37 37 weeks gestation of pregnancy
CPT/HCPCS: 59025; 76815

== ENCOUNTER 2020-02-14 15:50 | Outpatient (CLI) | payer MEDICAID ==
[2020-02-14 16:04] VITALS: BP 102/72
--- NOTE | 2020-02-14 18:27 | PROCEDURE REPORT ---
- HPI Diagnosis/Indication for NST: Other (AMA) Current EDU 02/25/20 Gestation 38 Weeks and 3 Days 7 Para 4 Vital Signs Temperature 98.2 F 02/14/20 16:03 Heart Rate 110 H 02/14/20 16:03 Respiratory Rate 16 02/14/20 16:03 Blood Pressure 102/72 02/14/20 16:03 O2 Saturation 100 02/14/20 16:03 Temperature 98.2 F 02/14/20 16:03 Heart Rate 110 H 02/14/20 16:03 Respiratory Rate 16 02/14/20 16:03 Blood Pressure 102/72 02/14/20 16:03 O2 Saturation 100 02/14/20 16:03 - NST Procedure NST Procedure Start Date 02/14/20 Start Time 15:57 Stop Time 16:18 Vibroacoustic Stimulation Used No Patient States Movement Yes - Results and Plan Findings/Impression: Reactive NST, category 1 F/U for NST and with OB provider as scheduled
== END 2020-02-14 16:25 | disposition home or self-care (01) ==
LOC: WFO 15:50 → FBP 15:52 → WFO 16:25
PROVIDERS: ATTEND Obstetrics & Gynecology
DX: O09.523 Supervision of elderly multigravida, third trimester (principal); Z3A.37 37 weeks gestation of pregnancy
CPT/HCPCS: 59025

== ENCOUNTER 2020-02-17 09:58 | Outpatient (CLI) | payer MEDICAID ==
[2020-02-17 11:00] VITALS: BP 114/74
--- NOTE | 2020-02-17 11:38 | Ultrasound Report ---
Reason: AMA, SUPERVISION OF 3RD TRIMESTER Procedure Date: 02/17/2020 Accession Number: [id number] / [id number] Procedure: US - OB F/U or Repeat CPT Code: Final Report FULL RESULT: EXAM: FOLLOW-UP OBSTETRICAL ULTRASOUND EXAM DATE: 02/17/2020 09:59 AM. CLINICAL HISTORY: AMA, SUPERVISION OF 3RD TRIMESTER. COMPARISON: 02/17/2020 10:35 AM OB LIMITED 02/10/2020 9:59 AM OB F/U OR REPEAT 01/26/2020 7:44 PM. TECHNIQUE: Real-time sonographic evaluation of the fetus performed by the chief technical officer. Multiple senior sales representative static images were saved for review. DATING: Established EGA 38 weeks 6 days with JEREMÍAS 02/25/2020. EGA 37 weeks 4 days with JEREMÍAS 03/05/2020 based on the current ultrasound. GENERAL EVALUATION Payan . Cardiac activity: 139 bpm. movement: Present. Presentation: Cephalic. Placenta: Fundal position. Amniotic fluid: Normal. MARIAN 7.4 cm. MVP 3 cm. BIOMETRY Bi-Parietal Diameter (BPD): 9.3 cm, 37 weeks 6 days Head Circumference (HC): 33 cm, 37 weeks 4 days Abdominal Circumference (AC): 35 cm, 39 weeks 0 days Femur Length (FL): 7 cm, 35 weeks 6 days Estimated Weight: 336 so g, 46th percentile for 38 weeks 6 days. IMPRESSION: 1. Payan intrauterine with gestational age 38 weeks 6 days based on established JEREMÍAS. 2. Estimated weight is within expected limits for assigned dating. PEGGY
== END 2020-02-17 11:25 | disposition home or self-care (01) ==
LOC: DI 09:58 → FBP 10:53 → DI 11:25
PROVIDERS: ATTEND Obstetrics & Gynecology
DX: O09.523 Supervision of elderly multigravida, third trimester (principal); Z3A.38 38 weeks gestation of pregnancy
CPT/HCPCS: 59025; 76816

== ENCOUNTER 2020-02-18 14:06 | Inpatient (IN) | payer MEDICAID ==
[2020-02-18] MEDS ORDERED: ONDANSETRON 4 MG/2 ML VIAL IVP PRN (15:05)
[2020-02-18] MEDS ORDERED: SODIUM CHLORIDE FLUSH 0.9% 10 ML SYRINGE IVP PRN (15:05)
[2020-02-18 15:53] LABS: HB2 TOTAL 13.2 g/dL; HEMOGLOBIN A1C 0.41 g/dL
[2020-02-18] MEDS ORDERED: miSOPROStoL 100 MCG TABLET BC ONE (16:00)
[2020-02-18 16:08] LABS: BASOPHILS % (AUTO) 0.3 %; EOSINOPHILS % (AUTO) 0.3 %; HGB - HEMOGLOBIN 12.4 g/dL (12.0-16.0); LYMPHOCYTES # (AUTO) 0.8 10^3/uL (1.5-3.5); LYMPHOCYTES % (AUTO) 12.3 %; MEAN CORPUSCULAR HEMOGLOBIN 33.2 pg (27.0-31.0); MEAN CORPUSCULAR HGB CONC 34.4 g/dL (32.0-36.0); MEAN CORPUSCULAR VOLUME 96.5 fL (81.0-99.0); MONOCYTES # (AUTO) 0.3 10^3/uL (0.0-1.0); MONOCYTES % (AUTO) 5.1 %; NEUTROPHILS # (AUTO) 5.3 10^3/uL (1.5-6.6); NEUTROPHILS % (AUTO) 81.5 %; PLT - PLATELET COUNT 130 10^3/uL (130-450); RED BLOOD COUNT 3.73 10^6/uL (4.20-5.40); WHITE BLOOD COUNT 6.5 x10^3/uL (4.8-10.8)
[2020-02-18] MEDS ORDERED: SODIUM CHLORIDE FLUSH 0.9% 10 ML SYRINGE IVP SCH (17:00)
[2020-02-18] MEDS ORDERED: miSOPROStoL 100 MCG TABLET BC SCH (20:00)
[2020-02-19] MEDS ORDERED: OXYTOCIN/SODIUM CHLORIDE 500 ML IV SCH (00:30)
[2020-02-19] MEDS ORDERED: ROPIVACAINE 0.2% 200 MG/100 ML BAG EP ONE (00:38)
[2020-02-19] MEDS ORDERED: LIDOCAINE-MPF 1% 30 ML VIAL ONE (00:38)
[2020-02-19] MEDS: LACTATED RINGERS 1,000 ML IV SCH ×2 (01:11→05:02)
--- NOTE | 2020-02-19 01:27 | ANESTHESIA ---
Pre-Anesthesia VS, & Labs - Diagnosis active labor - Procedure orion Height 5 ft Weight (kg) 65.771 kg Body Mass Index 19.5 - Is Patient ?: Yes - Lab Results Current Lab Results: Laboratory Tests 02/18/20 15:43: POC Whole Bld Glucose 93 02/18/20 15:00: Glycated Hemoglobin 5.0, Estim Average Glucose 97 02/18/20 15:00: WBC 6.5, RBC 3.73 L, Hgb 12.4, Hct 36.0 L, MCV 96.5, MCH 33.2 H, MCHC 34.4, RDW 13.0, Plt Count 130, MPV 13.0 H, Neut # (Auto) 5.3, Lymph # (Auto) 0.8 L, [place] # (Auto) 0.3, Eos # (Auto) 0.0, Baso # (Auto) 0.0, Absolute Nucleated RBC 0.00, Nucleated RBC % 0.0 Fish Bones: 02/18/20 15:00 Home Medications and Allergies Active Medications Acetaminophen (Tylenol) 650 mg PO Q6H PRN PRN Reason: Pain or Fever Lactated Ringer's (Lr) 1,000 mls @ 100 mls/hr IV .Q10H [facility] Last Admin: 02/19/20 01:11 Dose: 100 mls/hr Oxytocin/Sodium Chloride (Pitocin/Sodium Chloride) 500 mls @ 1 mls/hr IV TITR MADAY; Protocol Misoprostol (Cytotec) 50 mcg BC Q4H MADAY Stop: 02/19/20 12:01 Last Admin: 02/18/20 20:09 Dose: 50 mcg Ondansetron HCl (Zofran Inj) 4 mg IVP Q4HR PRN PRN Reason: Nausea / Vomiting Sodium Chloride (Normal Saline Flush 0.9%) 10 ml IVP 0100,0900,1700 [facility] Last Admin: 02/19/20 01:11 Dose: 10 ml Sodium Chloride (Normal Saline Flush 0.9%) 10 ml IVP PRN PRN PRN Reason: NEEDED PER PROVIDER ORDERS Allergies/Adverse Reactions: Allergies Allergy/AdvReac Type Severity Reaction Status Date / Time No Known Drug Allergies Allergy Verified 07/23/19 22:31 Anes History & Medical History - Anesthetic History Anesthesia Complications: reports: No previous complications Family history of Anesthesia Complications: Denies Family history of Malignant Hyperthermia: Denies - Medical History Cardiovascular: reports: None Pulmonary: reports: None Gastrointestinal: reports: None Urinary: reports: None Neuro: reports: None Musculoskeletal: reports: None Endocrine/Autoimmune: reports: None Blood Disorders: reports: None Skin: reports: None Smoking Status: Never smoker Psychosocial: reports: No issues indicated Exam General: Alert, Oriented x3, Cooperative, No acute distress Dental: WNL Mouth Openin Fingerbreadth Neck Mobility: Normal Mallampati classification: II Respiratory: Lungs clear, Normal breath sounds, No respiratory distress, No accessory muscle use Cardiovascular: Regular rate, Normal S1, Normal S2, No murmurs Abdomen: Normal bowel sounds, Soft, No tenderness, No hepatospenomegaly, No masses Extremities: No clubbing, No cyanosis, No edema, Normal pulses, No tenderness/swelling Neurological: Normal gait, Normal speech, Strength at 5/5 X4 ext, Normal tone, Sensation intact, Cranial nerves 3-12 NL, Reflexes 2+ Mental/Cognitive Status: Alert/Oriented X3, Normal for patient Cognitive Status: Within normal limits Plan Anesthesia Type: Epidural Consent for Procedure(s) Verified and Reviewed: Yes Code Status: Attempt Resuscitation ASA classification: 2-Mild systemic disease Is this case an emergency?: No
--- NOTE | 2020-02-19 03:38 | PROVIDER PROGRESS NOTE ---
Labor Progress Note - Uterine Monitoring Uterine Monitoring Mode: positive: External toco Contraction Frequency (min/apart): 2-4 Contraction Intensity: positive: Moderate to strong Uterine Resting Tone: positive: Soft - Monitoring Monitor Mode: positive: External ultrasound Heart Rate Baseline: 135 Heart Rate Variability: positive: Moderate (6-25 bmp) Accelerations: positive: Present, 15x15 Decelerations: positive: None Strip Review: positive: Category I - Vaginal Exam Dilation (in cm): 6 Effacement (%): 75 Station: -1 Cervical Position: Midposition - Labor Progress Note Labor Progress Note/Additional Text: AROM clear. titrate Pitocin
[2020-02-19] MEDS ORDERED: HYDROCORTISONE 1% CREAM 28 GM TUBE PR PRN (06:17)
[2020-02-19] MEDS ORDERED: diphenhydrAMINE 25 MG CAPSULE PO PRN (06:17)
[2020-02-19] MEDS ORDERED: WITCH HAZEL/GLYCERIN 1 PAD TOP PRN (06:17)
[2020-02-19] MEDS ORDERED: oxyCODONE 5 MG TABLET PO PRN (06:17)
[2020-02-19] MEDS ORDERED: ONDANSETRON ODT 4 MG TABLET TL PRN (06:17)
--- NOTE | 2020-02-19 06:24 | DELIVERY NOTE ---
Delivery Note - Labor Labor: positive: Induced by oxytocin - Infant Delivery Method Delivery Method: positive: Spontaneous vaginal delivery - Cervical Ripening Method Cervical Ripening Method: positive: Misoprostil, Oxytocin - Presentation Presentation: positive: Vertex, NILAY - left occiput anterior (Compound left hand) - Nuchal Cord Nuchal Cord: positive: None - Anesthetic Anesthetic Type: - Amniotic Fluid Description Amniotic Fluid Description: positive: Clear - Episiotomy Type Episiotomy Type: positive: None - Laceration Laceration: positive: 1st degree, Perineal - Suture Suture Type: positive: Vicryl Suture Size: positive: 3-0 - Delivery Outcome Delivery Outcome: positive: Livebirth (Apgars 8/9) - [place]: positive: Placed in direct skin contact with mother, Suctioned, Stimulated [place] sex: positive: Female : 89 - Cord Cord: positive: 3 vessels - Placenta Placenta: positive: Intact, Spontaneous - Estimated Blood Loss Estimated Blood Loss (in cc): 300 - Post Delivery Events Post Delivery Events: positive: No post delivery events - Delivery Comments (Free Text/Narrative) Delivery Comments (Free Text/Narrative): Patient had an epidural placed for labor analgesia. At 0329 cervical exam showed her to be 6 cm. Membranes were artificially ruptured and clear amniotic fluid was encountered. Patient progressed to complete at 0522. She started pushing at 0537 and at 0551 She delivered a live female with Apgars 8/9. Compound presentation the infant was left occiput anterior and her left hand was presenting also. After following delivery the was placed on mother's abdomen and the cord was not clamped until pulsations ceased. Her placenta delivered at 0559 was inspected and felt to be intact. At delivery and she suffered a first-degree laceration of the perineum which was repaired with 3-0 Vicryl. Estimated blood loss was 300 cc sponge and needle count was correct.
[2020-02-19] MEDS: IBUPROFEN 800 MG TABLET PO SCH ×3 (06:55→18:43)
[2020-02-19] MEDS ORDERED: LACTATED RINGERS 1,000 ML IV SCH (07:00)
[2020-02-19] MEDS ORDERED: DOCUSATE SODIUM 100 MG CAPSULE PO SCH (09:00)
[2020-02-19] MEDS: ACETAMINOPHEN 325 MG TABLET PO PRN ×2 (12:41→18:43)
[2020-02-19] MEDS ORDERED: SIMETHICONE CHEW 80 MG TABLET PO SCH (14:00)
[2020-02-20] MEDS: ACETAMINOPHEN 325 MG TABLET PO PRN ×2 (04:16→10:15)
[2020-02-20] MEDS: IBUPROFEN 800 MG TABLET PO SCH ×2 (04:16→10:14)
[2020-02-20 08:13] VITALS: BP 116/70
--- NOTE | 2020-02-20 10:38 | Discharge Plan ---
Discharge Plan Problem Reviewed?: Yes Disposition: 01 Home, Self Care Condition: Good Diet: Regular Activity Restrictions: Additional Comments (Nothing in the vagina for 6 weeks: No intercourse, tampons, douching Call for: -Fever greater than 100.5 - Pain that does not improve with pain medication -Heavy bleeding in which you are soaking a pad an hour for 2 hours in a row) Shower Restrictions: No (no baths or hot tubs for 4 weeks) Driving Restrictions: No Weight Bearing: Full Weight Additional Instructions or Follow Up instructions: Ibuprofen 600 mg by mouth every 6 hours as needed for pain Acetaminophen 500-1000 mg by mouth every 8 hours as needed for pain Docusate 100-200 mg by mouth twice a day as needed for constipation No Smoking: If you smoke, Please STOP! Call for help. Follow-up with: JEFRY KIRKLAND MD, PHD [Physician No Access] -
--- NOTE | 2020-02-20 10:40 | PROVIDER PROGRESS NOTE ---
Subjective - Prog Note Date Prog Note Date: 02/20/20 Prog Note Time: 10:39 - Subjective Pt reports feeling: Improved Subjective: Patient is up and ambulating, tolerating po, and voiding. Pain is well managed with pain medications. BF going well. Minimal lochia. Desires discharge. Objective - Vital Signs/Intake & Output Vital Signs: Vital Signs x48h Temp Pulse Resp BP Pulse Ox 02/20/20 08:12 97.9 F 80 19 116/70 96 02/20/20 04:24 97.7 F 81 16 108/72 100 Intake & Output: Intake & Output 02/17/20 02/18/20 02/19/20 02/20/20 23:59 23:59 23:59 23:59 Intake Total 250 985 Output Total 1325 Balance 250 -340 - Objective General Appearance: positive: No acute distress Eyes Bilateral: positive: Normal inspection Respiratory: positive: No respiratory distress Cardiovascular: positive: Other (RR) Abdomen: positive: Non-tender, Other (FF below umbi) Skin: positive: Color nml, Warm Extremities: positive: Non-tender, No pedal edema Neurologic/Psychiatric: positive: Oriented x3 - Lab Results Fish Bones: 02/18/20 15:00 Assessment/Plan - Problem List (1) Vaginal delivery Impression: PPD#1 s/p IOL for AMA/GDM Meeting goals for discharge Routine DC instructions given Rh pos/Rub imm
--- NOTE | 2020-02-20 10:47 | DISCHARGE SUMMARY ---
"Discharge Summary Admit Date: 02/18/20 Discharge Date: 02/20/20 Discharging Provider: Clem Code Status: Attempt Resuscitation Condition at Discharge: Good Discharge Disposition: 01 Home, Self Care - DIAGNOSES Admission Diagnoses: IUP at 39+0 wga AMA A1GDM Discharge Diagnoses with Status of Each Condition: Same and delivery of term gestation via - HPI History of Present Illness: Patient is a 44 yo admitted for induction of labor for AMA and A1GDM. had been complicated by late diagnosis of gestational diabetes and advanced maternal age. Iniital SVE was 2.5/60/-2/posterior/med. GBS negative. Rh positive and Rubella immune. - CONSULTS | PROCEDURES Procedures: Vaginal delivery, uncomplicated. - HOSPITAL COURSE Hospital Course: Patient was admitted and received one dose of misoprostol 50 mcg BC. She was then started on pitocin for induction at 1 mU/min. Patient had an epidural placed for labor analgesia. At 0329 cervical exam showed her to be 6 cm. Membranes were artificially ruptured and clear amniotic fluid was encountered. Patient progressed to complete at 0522. She started pushing at 0537 and at 0551 She delivered a live female infant with Apgars 8/9. Compound presentation the was left occiput anterior and her left hand was presenting also. After following delivery the was placed on mother's abdomen and the cord was not clamped until pulsations ceased. Her placenta delivered at 0559 was inspected and felt to be intact. At delivery and she suffered a first-degree laceration of the perineum which was repaired with 3-0 Vicryl. Estimated blood loss was 300 cc sponge and needle count was correct. By PPD#1, patient was meeting goals for discharge. Discharged to home with routine discharge instructions. Rh positive and rubella immune. Declined prescriptions for discharge medications. - ALLERGIES Allergies/Adverse Reactions: Allergies Allergy/AdvReac Type Severity Reaction Status Date / Time No Known Drug Allergies Allergy Verified 07/23/19 22:31 - LABS Result Diagrams: 02/18/20 15:00 - FOLLOW UP Follow Up: In [address] Nj - TIME SPENT Time Spent in Discharge (Minutes): 30"
--- NOTE | 2020-02-20 12:24 | Labor Flowsheet ---
Labor Flowsheet Datetime Report Generated by CPN: 02/20/2020 12:24 Datetime: 02/20/2020 08:07 VITAL SIGNS NBP Sys/Yen/Mean (mmHg): 116 : 70 : 80 Pulse: 80 LaborFlag: Labor Datetime: 02/20/2020 00:04 SpO2 (%): 100 Datetime: 02/19/2020 05:59 Stage 2 Comments: Intact placenta spontaneously delivered, routine discard Datetime: 02/19/2020 05:45 UTERINE ACTIVITY Monitor Mode: External Frequency (min): 2-3 Quality: Strong Duration (sec): 50-70 Pattern: Normal: <= 5 Contractions in 10 Minutes Resting Tone (Palpate): Relaxed ASSESSMENT A Monitor Mode: External US FHR Baseline Rate : 140 Variability: Moderate 6-25 bpm Accelerations: 10X10 Decelerations: Early; Variable Category: Category II Datetime: 02/19/2020 05:37 STAGE 2 Pushing: Coached on Pushing; Urge to Push Pushing Position: Pushing with Contractions; Pushing Left Side; Pushing Lithotomy Pushing Progress: Descent with Pushing; Pushing Effectively with Contractions Datetime: 02/19/2020 05:30 Pitocin Checklist: At Least 1 Acceleration of 15 bpm x 15 Seconds in 30 Minutes or Adequate Variabi lity; No More than 1 Late Deceleration Occurred in Past 30 Minutes; No More than 5 Uterine Contractio ns in 10 Minutes for any 20 Minute Interval; Uterus Palpates Soft between Contractions Datetime: 02/19/2020 05:22 VAGINAL EXAM Dilatation (cm): 10.0 Station: 3 Exam by: Ramonita Briceno RN Vaginal Bleeding: Normal Show Cervix, Consistency: Soft Cervix, Position: Anterior Datetime: 02/19/2020 05:15 Oxygen Method: Room Air Datetime: 02/19/2020 05:09 Monitor Interventions for FHR: Ultrasound Adjusted Datetime: 02/19/2020 05:03 PATIENT CARE IV/Blood Work: New IV Bag Hung Patient Care Comments: 2nd bag of LR hung Datetime: 02/19/2020 04:47 MEDICATIONS Pitocin (milliunits): Increased to @ 4 Datetime: 02/19/2020 04:37 Patient Position/Activity: Left Tilt Datetime: 02/19/2020 04:33 Vaginal Exam Comments: Cervix still on Left Datetime: 02/19/2020 04:30 Actions for Decelerations: Side to Side; Sterile Vaginal Exam; Provider Notified Datetime: 02/19/2020 04:03 Temperature (C): 36.7 Datetime: 02/19/2020 03:55 I/O Interventions: Patrick Cath Inserted Datetime: 02/19/2020 03:50 Pain Presence: None/Denies Datetime: 02/19/2020 03:29 Effacement (%): 75 Membrane Status: Ruptured Membranes Rupture Method: Artificial Amniotic Fluid Color: Clear Amniotic Fluid Amount: Small Datetime: 02/19/2020 01:39 Comments: Tracing not continuous. Pt had just coughed Datetime: 02/19/2020 01:14 Contraction Comments: tele switched to ext toco monitor Datetime: 02/19/2020 01:10 Anesthesia Level Check: T10- Umbilicus Datetime: 02/19/2020 00:56 Anesthesia Comments: 1st bolus Datetime: 02/19/2020 00:52 Epidural Procedure: Test Dose Datetime: 02/19/2020 00:45 PROCEDURE TIME OUT Procedure Verify: Correct Patient Position Epidural Positioning: Sitting Datetime: 02/19/2020 00:37 ANESTHESIA Anesthesia Plans: Epidural Datetime: 02/19/2020 00:32 PAIN Pain Scale: 7 Pain Type: Contraction Pain Location: Abdomen Pain Relief Measures: Comfort Measures Pain Coping: Talking Through Contractions; Breathing Through Contractions Comfort Measures: Breathing/Relaxation Datetime: 02/19/2020 00:13 COMMUNICATION Communication: Report Given to @ DrAbraham Giem Communication Comments: Notified MD that pt requesting epidural at this point. VE 5.5-6cm. MD order s Pitocin to be started and he might AROM after pt has epidural Datetime: 02/18/2020 23:00 Provider Notified (Name): Dr. Giem Datetime: 02/18/2020 20:13 Respirations: 16 Datetime: 02/18/2020 19:15 MATERNAL ASSESSMENT Level of Consciousness: Alert Headache: Denies Breath Sounds, Left: Clear and Equal Breath Sounds, Right: Clear and Equal Nausea/Vomiting: Denies RUQ Epigastric Pain: Denies
== END 2020-02-20 12:15 | disposition home or self-care (01) | DRG 807 ==
LOC: WFO 14:06 → FBP 14:08 → WFO 15:04 → FBP 15:05 → UNDOFXCLISVC 15:05 → OBSVTOIN 02-19 08:31
PROVIDERS: ADMIT Obstetrics & Gynecology; ATTEND Obstetrics & Gynecology
PROC: 10E0XZZ Delivery of Products of Conception, External Approach (ICD-10-PCS; principal; 2020-02-19)
PROC: 0HQ9XZZ Repair Perineum Skin, External Approach (ICD-10-PCS; 2020-02-19)
PROC: 3E033VJ Introduction of Other Hormone into Peripheral Vein, Percutaneous Approach (ICD-10-PCS; 2020-02-19)
DX: O24.429 Gestational diabetes mellitus in childbirth, unspecified control (principal); Z37.0 Single live birth; O64.5XX0 Obstructed labor due to compound presentation, not applicable or unspecified; O70.0 First degree perineal laceration during delivery; Z3A.39 39 weeks gestation of pregnancy; Z87.42 Personal history of other diseases of the female genital tract
CPT/HCPCS: 83036; 85025; A9270; G0378; J7120